=== PATIENT | male | born 2005 | race African-American/Black ===

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

== ENCOUNTER 2025-01-14 10:31 | Emergency (ER) | payer MEDICAID ==
[~2025-01-14] VITALS: Ht 180.3 cm; Wt 73.0 kg
[2025-01-14 10:37] VITALS: BP 141/93; PULSE 90; RESP 20; TEMP 37.1; O2SAT 99
== END 2025-01-14 14:41 | disposition left against medical advice (07) ==
LOC: ER 10:31
DX: F41.9 Anxiety disorder, unspecified (principal); Z53.21 Procedure and treatment not carried out due to patient leaving prior to being seen by health care provider
CPT/HCPCS: 99281

== ENCOUNTER 2025-01-17 02:13 | Emergency (ER) | payer MEDICAID ==
[~2025-01-17] VITALS: Ht 177.8 cm; Wt 74.0 kg
[2025-01-17 02:26] VITALS: TEMP 36.9; O2SAT 97
[2025-01-17] MEDS: SODIUM CHLORIDE 0.9% 1,000 ML IV ONE (02:45)
[2025-01-17 02:56] LABS: BASOPHILS % 0.6 % (0.0-2.0); EOSINOPHILS % 4.5 % (0.0-5.0); HEMATOCRIT. 47.3 % (42.0-52.0); HEMOGLOBIN. 15.9 g/dL (14.0-18.0); LYMPHOCYTES % 54.0 % (20.0-50.0); MEAN PLATELET VOLUME 8.4 fl (7.4-10.4); MONOCYTES % 10.2 % (2.0-8.0); NEUTROPHILS % 30.7 % (40.0-76.0); PLATELET 264 x1000/uL (130-400); RED BLOOD CELL COUNT 5.40 mill/uL (4.7-6.1); RED CELL DISTRIBUTION WIDTH 13.2 % (11.6-14.6)
[2025-01-17 03:09] LABS: CREATININE 1.2 mg/dL (0.6-1.3); UREA NITROGEN BLOOD 6 mg/dL (9-23)
[2025-01-17 03:11] LABS: TROPONIN I HIGH SENSITIVITY < 4 ng/L (3.0-53)
[2025-01-17] MEDS: LORAZEPAM 2MG/ML UD SYRINGE IV NR (03:24)
[2025-01-17] MEDS: KETOROLAC 15MG/ML VIAL IV ONE (03:25)
[2025-01-17] MEDS ORDERED: HYDR10TA34 MT (04:09)
[2025-01-17 04:27] VITALS: BP 116/71; PULSE 90; RESP 21; O2SAT 99
== END 2025-01-17 04:49 | disposition home or self-care (01) ==
LOC: ER 02:13 → CMPBEDREQ 08:09
DX: F41.9 Anxiety disorder, unspecified (principal); Z79.899 Other long term (current) drug therapy
CPT/HCPCS: 99284; 96374; 71045; 96361; 96375; 80048; 83880; 85025; 84484; 36415; J1885; J2060; J7030

== ENCOUNTER 2025-01-20 11:25 | Emergency (ER) | payer MEDICAID ==
[~2025-01-20] VITALS: Ht 172.7 cm; Wt 70.0 kg
[~2025-01-20 11:25] MED LIST: HYDR10TA34 MT
[2025-01-20 11:30] VITALS: O2SAT 98
[2025-01-20 11:31] VITALS: BP 132/90; PULSE 101; RESP 16; TEMP 36.8; O2SAT 100
== END 2025-01-20 13:15 | disposition left against medical advice (07) ==
LOC: ER 11:25
DX: F41.9 Anxiety disorder, unspecified (principal); Z79.899 Other long term (current) drug therapy
CPT/HCPCS: 93005; 99281

== ENCOUNTER 2025-01-22 07:35 | Emergency (ER) | payer MEDICAID ==
[~2025-01-22] VITALS: Ht 172.7 cm; Wt 70.0 kg
[2025-01-22 07:50] VITALS: O2SAT 100
[2025-01-22 08:32] LABS: BASOPHILS % 0.4 % (0.0-2.0); EOSINOPHILS % 0.7 % (0.0-5.0); HEMATOCRIT. 45.0 % (42.0-52.0); HEMOGLOBIN. 15.1 g/dL (14.0-18.0); LYMPHOCYTES % 16.9 % (20.0-50.0); MEAN PLATELET VOLUME 7.8 fl (7.4-10.4); MONOCYTES % 5.0 % (2.0-8.0); NEUTROPHILS % 77.0 % (40.0-76.0); PLATELET 257 x1000/uL (130-400); RED BLOOD CELL COUNT 5.16 mill/uL (4.7-6.1); RED CELL DISTRIBUTION WIDTH 12.9 % (11.6-14.6)
[2025-01-22 08:44] LABS: CREATININE 1.1 mg/dL (0.6-1.3); UREA NITROGEN BLOOD 9 mg/dL (9-23)
[2025-01-22 09:36] VITALS: BP 151/83; PULSE 95; RESP 18; TEMP 36.9; O2SAT 100
== END 2025-01-22 09:39 | disposition home or self-care (01) ==
LOC: ER 07:35
DX: R00.2 Palpitations (principal); F41.9 Anxiety disorder, unspecified; J45.909 Unspecified asthma, uncomplicated; Z87.891 Personal history of nicotine dependence
CPT/HCPCS: 36415; 71045; 80048; 85025; 85379; 93005; 99285

== ENCOUNTER 2025-02-08 22:13 | Emergency (ER) | payer MEDICAID ==
[~2025-02-08] VITALS: Ht 177.8 cm; Wt 69.0 kg
[2025-02-08 22:20] VITALS: TEMP 36.9; O2SAT 100
[2025-02-08] MEDS: FAMOTIDINE 20MG TABLET PO ONE (23:02)
[2025-02-08] MEDS: MAGNESIUM/ALUMINUM HYDROXIDE/SIMETHICONE 30ML UDC PO ONE (23:03)
[2025-02-08] MEDS: ONDANSETRON 4MG ODT PO ONE (23:03)
[2025-02-08] MEDS ORDERED: MAG355OR21 MT (23:41)
[2025-02-08] MEDS ORDERED: FAMO40TA70 MT (23:41)
[2025-02-08 23:55] VITALS: BP 139/77; PULSE 76; RESP 16; O2SAT 98
== END 2025-02-08 23:57 | disposition home or self-care (01) ==
LOC: ER 22:13
DX: K21.9 Gastro-esophageal reflux disease without esophagitis (principal); F41.9 Anxiety disorder, unspecified; J45.909 Unspecified asthma, uncomplicated; Z79.899 Other long term (current) drug therapy
CPT/HCPCS: 99284; Q0162